=== PATIENT | female | born 1985 | race Caucasian/White ===

== ENCOUNTER 2019-12-17 15:04 | Emergency (ER) | payer OTHER ==
[~2019-12-17] VITALS: Ht 157.5 cm; Wt 77.7 kg
[2019-12-17 15:07] VITALS: BP 130/76
[2019-12-17 15:51] LABS: CLARITY,URINE CLEAR (Clear); COLOR,URINE YELLOW (Yellow); GLUCOSE, URINE NEGATIVE (Neg); KETONES,URINE NEGATIVE (Neg); LEUKOCYTE ESTERASE ,URINE NEGATIVE (Neg); NITRITES, URINE NEGATIVE (Neg); OCCULT BLOOD,URINE NEGATIVE (Neg); PH,URINE 6.5 (4.8-8.0); PROTEIN,URINE NEGATIVE (Neg); UA COLLECTION TYPE CLN CATCH MIDSTREAM; UROBILINOGEN,URINE 0.2 E.U/dL (0.2-1.0)
[2019-12-17 15:56] LABS: URINE HCG NEGATIVE (NEG)
== END 2019-12-17 19:07 | disposition home or self-care (01) ==
LOC: ER 15:04
DX: R30.0 Dysuria (principal); R63.0 Anorexia; R11.0 Nausea; Z88.1 Allergy status to other antibiotic agents; Z88.8 Allergy status to other drugs, medicaments and biological substances; Z87.440 Personal history of urinary (tract) infections
CPT/HCPCS: 81003; 81025; 87088; 87210; 99283; Q0112

== ENCOUNTER 2019-12-23 09:53 | Emergency (ER) | payer OTHER ==
[~2019-12-23] VITALS: Ht 156.2 cm; Wt 79.3 kg
[2019-12-23 10:05] VITALS: BP 132/79
[2019-12-23 10:45] LABS: URINE HCG NEGATIVE (NEG)
[2019-12-23 10:46] LABS: CLARITY,URINE CLEAR (Clear); COLOR,URINE YELLOW (Yellow); GLUCOSE, URINE NEGATIVE (Neg); KETONES,URINE NEGATIVE (Neg); LEUKOCYTE ESTERASE ,URINE NEGATIVE (Neg); NITRITES, URINE NEGATIVE (Neg); OCCULT BLOOD,URINE NEGATIVE (Neg); PROTEIN,URINE NEGATIVE (Neg); UROBILINOGEN,URINE 0.2 E.U/dL (0.2-1.0)
[2019-12-23 10:57] LABS: UA COLLECTION TYPE CLN CATCH MIDSTREAM
[2019-12-23] MEDS ORDERED: CEPH-572 PO (11:15)
[2019-12-23] MEDS ORDERED: PHEN-824 PO (11:15)
== END 2019-12-23 11:22 | disposition home or self-care (01) ==
LOC: ER 09:54
DX: R30.0 Dysuria (principal); R39.15 Urgency of urination; R35.0 Frequency of micturition; Z88.8 Allergy status to other drugs, medicaments and biological substances; Z79.899 Other long term (current) drug therapy
CPT/HCPCS: 81003; 81025; 99283

== ENCOUNTER 2024-09-03 06:44 | Day surgery (SDC) | payer MEDICAID, OTHER ==
[~2024-09-03] VITALS: Ht 154.9 cm; Wt 88.6 kg
[~2024-09-03 06:44] MED LIST: BUPR-561; DEXL60CA18 PO; LISD30CA2 PO; MINO2.5T19 PO; ONDA-243; OXCA150T14 PO; SPIR25TA5 PO
[2024-09-03 07:13] VITALS: BP 121/79; PULSE 82; RESP 11; TEMP 98.7
[2024-09-03] MEDS ORDERED: propofol (Diprivan) 10mg/ml 100ml bottle IV ONE (07:20)
[2024-09-03] MEDS ORDERED: fentaNYL/PF 50MCG/1 ML 2ML syringe ONE (07:39)
[2024-09-03] MEDS ORDERED: LIDOcaine 1%/PF 5ML 10 MG/ML VIAL ONE (08:02)
[2024-09-03] MEDS ORDERED: midazolam 1 mg/ML 2ml injection ONE (08:03)
[2024-09-03] MEDS ORDERED: LIDOcaine 2% Viscous 15ml cup ONE (08:07)
[2024-09-03 08:32] VITALS: BP 118/81; PULSE 72; RESP 14; O2SAT 97
[2024-09-03 08:42] VITALS: BP 120/79; PULSE 71; RESP 13; O2SAT 97
[2024-09-03 08:52] VITALS: BP 123/83; PULSE 72; RESP 14; O2SAT 97
[2024-09-03 09:05] VITALS: BP 132/79; PULSE 75; RESP 16; O2SAT 97
== END 2024-09-03 09:06 | disposition home or self-care (01) ==
LOC: GI LAB 06:44
PROVIDERS: ATTEND Internal Medicine Gastroenterology
DX: R13.10 Dysphagia, unspecified (principal); K21.9 Gastro-esophageal reflux disease without esophagitis; K29.70 Gastritis, unspecified, without bleeding; K25.9 Gastric ulcer, unspecified as acute or chronic, without hemorrhage or perforation; K31.89 Other diseases of stomach and duodenum; J44.9 Chronic obstructive pulmonary disease, unspecified; F41.9 Anxiety disorder, unspecified; R11.2 Nausea with vomiting, unspecified; Z87.442 Personal history of urinary calculi; Z88.8 Allergy status to other drugs, medicaments and biological substances; Z79.899 Other long term (current) drug therapy
CPT/HCPCS: 43239; J2250; J2704; J3010; J3490; J7030; Z7512; A4620